=== PATIENT | male | born 1945 | race Asian ===

== ENCOUNTER 2017-09-30 09:58 | Inpatient (IN) | payer MEDICARE, MEDICAID ==
[~2017-09-30] VITALS: Ht 162.6 cm; Wt 57.0 kg
[~2017-09-30 09:58] MED LIST: ASPI-496 PO; CEFD300C37 PO; DIPH25CA61 PO; DOXY100T PO; ENAL10TA71 PO; ERGO500017 PO; HYDR-3237 PO; HYDR-3342 PO; LEVO75TA5 PO; METF850T2 PO; MULT-717 PO; OMEP-110 PO; SIMV20TA PO; TRIA15CR53 TP
[2017-09-30] MEDS ORDERED: SODIUM CHLORIDE FLUSH 10ML SYR IVF ONE (10:30)
[2017-09-30] MEDS ORDERED: MECLIZINE CHEWABLE 25 MG TAB PO ONE (10:30)
[2017-09-30] MEDS ORDERED: SODIUM CHLORIDE 0.9% 1,000ML IVBOLUS ONE (10:30)
[2017-09-30] MEDS ORDERED: MECLIZINE CHEWABLE 25 MG TAB ONE (10:44)
[2017-09-30] MEDS ORDERED: ATOR20TA9 PO (10:56)
[2017-09-30] MEDS ORDERED: LISI-170 PO (10:56)
[2017-09-30 11:11] LABS: INTERNATIONAL NORMALIZED RATIO 1.03 (0.93-1.1); PROTHROMBIN TIME 10.7 Seconds (9.6-11.5)
[2017-09-30 11:13] LABS: ALBUMIN 3.9 g/dL (3.4-5.0); ANION GAP 11 mmol/L (5-15); CHLORIDE 107 mmol/L (98-107); CREATININE 1.58 mg/dL (0.7-1.3)
[2017-09-30 11:15] LABS: BASOPHILS # (AUTO) 0.05 x10^3/uL (0-0.1); BASOPHILS % (AUTO) 1 % (0-1); EOSINOPHILS # (AUTO) 0.41 x10^3/uL (0-0.4); EOSINOPHILS % (AUTO) 5 % (1-7); LYMPHOCYTES # (AUTO) 2.02 x10^3/uL (1-3.4); LYMPHOCYTES % (AUTO) 24 % (22-44); MD NO; MEAN CORPUSCULAR HEMOGLOBIN 31.7 pg (27.5-34.5); MEAN CORPUSCULAR HGB CONC 32.9 g/dL (33.2-36.2); MEAN CORPUSCULAR VOLUME 96.3 fL (81-97); MEAN PLATELET VOLUME 8.5 fL (7.4-10.4); MONOCYTES # (AUTO) 0.59 x10^3/uL (0.2-0.8); MONOCYTES % (AUTO) 7 % (2-9); NEUTROPHILS # (AUTO) 5.41 x10^3/uL (1.8-6.8); NEUTROPHILS % (AUTO) 64 % (42-75); PLATELET COUNT 133 x10^3/uL (130-400); RED BLOOD COUNT 4.28 x10^6/uL (4.38-5.82); RED CELL DISTRIBUTION WIDTH 15.1 % (9.4-14.8)
[2017-09-30 11:17] LABS: TROPONIN I < 0.015 ng/mL (0.000-0.045)
[2017-09-30 12:00] LABS: FREE T4 (FREE THYROXINE) 1.71 ng/dL (0.76-1.46); THYROID STIMULATING HORMONE 4.96 mIU/L (0.358-3.740)
[2017-09-30] MEDS: SODIUM CHLORIDE 0.9% 1,000 ML IV SCH (13:51)
[2017-09-30] MEDS ORDERED: LABETALOL 5MG/ML, 20ML IVPush PRN (14:00)
[2017-09-30] MEDS ORDERED: BISACODYL 10 MG SUPP PR PRN (14:00)
[2017-09-30] MEDS ORDERED: ONDANSETRON 2MG/ML, 2ML IVPush PRN (14:00)
[2017-09-30] MEDS: ENOXAPARIN 30 MG/0.3 ML SQ SCH (14:00)
[2017-09-30] MEDS ORDERED: ONDANSETRON ODT 4 MG PO PRN (14:00)
[2017-09-30] MEDS ORDERED: DOCUSATE 100 MG CAPSULE PO PRN (14:00)
[2017-09-30] MEDS ORDERED: ACETAMINOPHEN 325 MG TABLET PO PRN (14:00)
[2017-09-30] MEDS ORDERED: ENALAPRILAT 1.25 MG/ML, 2ML IVPush PRN (14:00)
[2017-09-30 14:38] LABS: TROPONIN I 0.024 ng/mL (0.000-0.045)
[2017-09-30 15:18] LABS: HEMOGLOBIN A1C 7.2 % (4.2-6.3)
[2017-09-30] MEDS ORDERED: ENOXAPARIN 40 MG/0.4 ML ONE (15:40)
[2017-09-30 15:47] LABS: MICROSCOPIC INDICATED
[2017-09-30] MEDS: INSULIN ASPART 100 UNITS/ML, PEN SQ-INSULIN SCH ×2 (16:00→21:39)
[2017-09-30] MEDS: MECLIZINE 12.5 MG TABLET PO SCH ×2 (16:00→20:13)
[2017-09-30 16:22] LABS: CULTURE INDICATED? NO
[2017-09-30 18:29] VITALS: BP 108/53
[2017-09-30 20:08] LABS: TROPONIN I 0.028 ng/mL (0.000-0.045)
[2017-09-30] MEDS: ATORVASTATIN 20 MG TABLET PO SCH (20:13)
[2017-09-30] MEDS: LACTULOSE 10 GM/15 ML UDC PO SCH (20:13)
[2017-09-30 20:59] VITALS: BP 113/47
[2017-09-30 21:00] VITALS: BP_SYST 109; BP_SYST 117; BP_DIAS 53; BP_DIAS 59
[2017-09-30] MEDS ORDERED: OMEPRAZOLE 20 MG CAPSULE.DR PO ONE (21:00)
[2017-10-01] MEDS: ENOXAPARIN 30 MG/0.3 ML SQ SCH ×2 (01:27→21:07)
[2017-10-01 02:11] VITALS: BP 98/55
[2017-10-01 02:12] VITALS: BP_SYST 101; BP_SYST 111; BP_DIAS 40; BP_DIAS 52
[2017-10-01 05:12] LABS: ALBUMIN 2.9 g/dL (3.4-5.0); CALCIUM 8.3 mg/dL (8.5-10.1); CHLORIDE 114 mmol/L (98-107)
[2017-10-01 05:17] LABS: ALANINE AMINOTRANSFERASE 55 U/L (12-78); ALKALINE PHOSPHATASE 66 U/L (45-117); ANION GAP 6 mmol/L (5-15); BILIRUBIN,TOTAL 0.4 mg/dL (0.2-1.0); CREATININE 1.34 mg/dL (0.7-1.3)
[2017-10-01 05:23] LABS: BASOPHILS # (AUTO) 0.02 x10^3/uL (0-0.1); BASOPHILS % (AUTO) 0 % (0-1); EOSINOPHILS # (AUTO) 0.27 x10^3/uL (0-0.4); EOSINOPHILS % (AUTO) 4 % (1-7); LYMPHOCYTES # (AUTO) 0.98 x10^3/uL (1-3.4); LYMPHOCYTES % (AUTO) 13 % (22-44); MD NO; MEAN CORPUSCULAR HEMOGLOBIN 31.7 pg (27.5-34.5); MEAN CORPUSCULAR HGB CONC 33.2 g/dL (33.2-36.2); MEAN CORPUSCULAR VOLUME 95.4 fL (81-97); MEAN PLATELET VOLUME 8.3 fL (7.4-10.4); MONOCYTES # (AUTO) 0.59 x10^3/uL (0.2-0.8); MONOCYTES % (AUTO) 8 % (2-9); NEUTROPHILS # (AUTO) 5.62 x10^3/uL (1.8-6.8); NEUTROPHILS % (AUTO) 75 % (42-75); PLATELET COUNT 115 x10^3/uL (130-400); RED BLOOD COUNT 3.56 x10^6/uL (4.38-5.82); RED CELL DISTRIBUTION WIDTH 14.3 % (9.4-14.8)
[2017-10-01 05:26] VITALS: BP 101/49
[2017-10-01] MEDS: SODIUM CHLORIDE 0.9% 1,000 ML IV SCH ×2 (06:06→21:08)
[2017-10-01] MEDS: INSULIN ASPART 100 UNITS/ML, PEN SQ-INSULIN SCH ×4 (07:00→21:00)
[2017-10-01] MEDS: LACTULOSE 10 GM/15 ML UDC PO SCH (08:12)
[2017-10-01] MEDS: ASPIRIN 81 MG TABLET EC PO SCH (10:03)
[2017-10-01] MEDS: OMEPRAZOLE 20 MG CAPSULE.DR PO SCH (10:03)
[2017-10-01] MEDS: MECLIZINE 12.5 MG TABLET PO SCH ×3 (10:03→21:07)
[2017-10-01] MEDS: LEVOTHYROXINE 75 MCG TABLET PO SCH (10:04)
[2017-10-01] MEDS ORDERED: ERGOCALCIFEROL 50,000 UNIT CAPSULE PO SCH (11:00)
[2017-10-01 13:45] VITALS: BP 129/55
[2017-10-01] MEDS: TRIAMCINOLONE CRM 0.5%, 15GM TP SCH ×2 (16:00→21:07)
[2017-10-01 20:49] VITALS: BP_SYST 140; BP_SYST 144; BP_SYST 156; BP_DIAS 63; BP_DIAS 65; BP_DIAS 71
[2017-10-01] MEDS: ATORVASTATIN 20 MG TABLET PO SCH (21:07)
[2017-10-02] VITALS (7 sets, daily range): BP systolic 128–166; BP diastolic 57–75
[2017-10-02] MEDS: SODIUM CHLORIDE 0.9% 1,000 ML IV SCH ×2 (06:02→16:51)
[2017-10-02] MEDS: INSULIN ASPART 100 UNITS/ML, PEN SQ-INSULIN SCH ×4 (07:00→21:34)
[2017-10-02] MEDS: ASPIRIN 81 MG TABLET EC PO SCH (09:38)
[2017-10-02] MEDS: MECLIZINE 12.5 MG TABLET PO SCH ×3 (09:38→21:33)
[2017-10-02] MEDS: TRIAMCINOLONE CRM 0.5%, 15GM TP SCH ×3 (09:39→21:34)
[2017-10-02] MEDS: LEVOTHYROXINE 75 MCG TABLET PO SCH (09:39)
[2017-10-02] MEDS: ENOXAPARIN 30 MG/0.3 ML SQ SCH ×2 (09:39→21:00)
[2017-10-02] MEDS: LISINOPRIL 20 MG TABLET PO SCH (09:39)
[2017-10-02] MEDS: OMEPRAZOLE 20 MG CAPSULE.DR PO SCH (09:39)
[2017-10-02] MEDS: ATORVASTATIN 20 MG TABLET PO SCH (21:33)
[2017-10-03 02:58] VITALS: BP 146/62
[2017-10-03] MEDS: SODIUM CHLORIDE 0.9% 1,000 ML IV SCH ×4 (04:52→14:06)
[2017-10-03 05:16] LABS: BASOPHILS # (AUTO) 0.06 x10^3/uL (0-0.1); BASOPHILS % (AUTO) 1 % (0-1); EOSINOPHILS # (AUTO) 0.57 x10^3/uL (0-0.4); EOSINOPHILS % (AUTO) 9 % (1-7); LYMPHOCYTES # (AUTO) 1.03 x10^3/uL (1-3.4); LYMPHOCYTES % (AUTO) 16 % (22-44); MD NO; MEAN CORPUSCULAR HEMOGLOBIN 31.6 pg (27.5-34.5); MEAN CORPUSCULAR HGB CONC 33.1 g/dL (33.2-36.2); MEAN CORPUSCULAR VOLUME 95.5 fL (81-97); MEAN PLATELET VOLUME 8.7 fL (7.4-10.4); MONOCYTES # (AUTO) 0.64 x10^3/uL (0.2-0.8); MONOCYTES % (AUTO) 10 % (2-9); NEUTROPHILS # (AUTO) 4.01 x10^3/uL (1.8-6.8); NEUTROPHILS % (AUTO) 63 % (42-75); PLATELET COUNT 115 x10^3/uL (130-400); RED BLOOD COUNT 3.88 x10^6/uL (4.38-5.82); RED CELL DISTRIBUTION WIDTH 14.3 % (9.4-14.8)
[2017-10-03 05:18] LABS: INTERNATIONAL NORMALIZED RATIO 1.06 (0.93-1.1)
[2017-10-03 05:23] LABS: CHLORIDE 111 mmol/L (98-107)
[2017-10-03 05:28] LABS: ANION GAP 5 mmol/L (5-15); CALCIUM 7.7 mg/dL (8.5-10.1); CREATININE 1.15 mg/dL (0.7-1.3)
[2017-10-03] MEDS ORDERED: CEFAZOLIN PMX 1GM/50ML 50 ML IVPB ONE (07:30)
[2017-10-03 07:43] VITALS: BP_SYST 157; BP_SYST 158; BP_DIAS 64; BP_DIAS 66
[2017-10-03] MEDS: MECLIZINE 12.5 MG TABLET PO SCH ×3 (08:08→20:46)
[2017-10-03] MEDS: ASPIRIN 81 MG TABLET EC PO SCH (08:09)
[2017-10-03] MEDS: OMEPRAZOLE 20 MG CAPSULE.DR PO SCH (08:12)
[2017-10-03] MEDS: TRIAMCINOLONE CRM 0.5%, 15GM TP SCH ×3 (08:12→20:44)
[2017-10-03] MEDS: LISINOPRIL 20 MG TABLET PO SCH (08:12)
[2017-10-03] MEDS: LEVOTHYROXINE 75 MCG TABLET PO SCH (08:12)
[2017-10-03] MEDS: INSULIN ASPART 100 UNITS/ML, PEN SQ-INSULIN SCH ×3 (11:00→20:38)
[2017-10-03 14:10] VITALS: BP 167/69
[2017-10-03 19:04] VITALS: BP 131/81
[2017-10-03] MEDS ORDERED: LOPERAMIDE 2 MG CAPSULE PO PRN (20:00)
[2017-10-03] MEDS: ATORVASTATIN 20 MG TABLET PO SCH (20:44)
[2017-10-04 02:44] VITALS: BP 142/70
[2017-10-04] MEDS: SODIUM CHLORIDE 0.9% 1,000 ML IV SCH ×2 (06:05→14:00)
[2017-10-04] MEDS: INSULIN ASPART 100 UNITS/ML, PEN SQ-INSULIN SCH ×3 (07:00→21:00)
[2017-10-04 07:03] VITALS: BP 154/70
[2017-10-04] MEDS ORDERED: CEFAZOLIN PMX 1GM/50ML 50 ML IV ONE ×2 (08:30→09:00)
[2017-10-04] MEDS: LISINOPRIL 20 MG TABLET PO SCH (09:00)
[2017-10-04] MEDS: TRIAMCINOLONE CRM 0.5%, 15GM TP SCH ×3 (09:00→21:46)
[2017-10-04] MEDS: OMEPRAZOLE 20 MG CAPSULE.DR PO SCH (09:00)
[2017-10-04] MEDS: MECLIZINE 12.5 MG TABLET PO SCH ×3 (09:00→21:46)
[2017-10-04] MEDS: LEVOTHYROXINE 75 MCG TABLET PO SCH (09:00)
[2017-10-04] MEDS ORDERED: MIDAZOLAM 1 MG/ML, 2ML ONE (09:48)
[2017-10-04] MEDS ORDERED: LIDOCAINE 2%, 20ML ONE (09:49)
[2017-10-04] MEDS ORDERED: CEFAZOLIN 1,000 MG ONE (09:49)
[2017-10-04] MEDS ORDERED: CEFAZOLIN PMX 1GM/50ML 50 ML ONE (09:49)
[2017-10-04] MEDS ORDERED: FENTANYL PF 100 MCG/2ML ONE (09:49)
[2017-10-04 14:00] VITALS: BP 144/79
[2017-10-04 19:52] VITALS: BP 155/75
[2017-10-04] MEDS: SODIUM CHLORIDE FLUSH 10ML SYR IVF SCH (21:00)
[2017-10-04] MEDS: CEFAZOLIN PMX 1GM/50ML 50 ML IVPB SCH (21:33)
[2017-10-04] MEDS: ATORVASTATIN 20 MG TABLET PO SCH (21:46)
[2017-10-05 00:06] VITALS: BP 163/78
[2017-10-05] MEDS: SODIUM CHLORIDE 0.9% 1,000 ML IV SCH ×3 (00:36→12:51)
[2017-10-05] MEDS: CEFAZOLIN PMX 1GM/50ML 50 ML IVPB SCH (05:37)
[2017-10-05 06:30] LABS: ANION GAP 7 mmol/L (5-15); CALCIUM 7.6 mg/dL (8.5-10.1); CHLORIDE 108 mmol/L (98-107); CREATININE 1.22 mg/dL (0.7-1.3)
[2017-10-05 06:54] LABS: BASOPHILS # (AUTO) 0.04 x10^3/uL (0-0.1); BASOPHILS % (AUTO) 1 % (0-1); EOSINOPHILS # (AUTO) 0.42 x10^3/uL (0-0.4); EOSINOPHILS % (AUTO) 6 % (1-7); LYMPHOCYTES % (AUTO) 13 % (22-44); MD SCAN; MEAN CORPUSCULAR HEMOGLOBIN 31.4 pg (27.5-34.5); MEAN CORPUSCULAR HGB CONC 32.7 g/dL (33.2-36.2); MEAN PLATELET VOLUME 8.7 fL (7.4-10.4); MONOCYTES # (AUTO) 0.57 x10^3/uL (0.2-0.8); MONOCYTES % (AUTO) 8 % (2-9); NEUTROPHILS # (AUTO) 5.26 x10^3/uL (1.8-6.8); NEUTROPHILS % (AUTO) 73 % (42-75); PLATELET COUNT 95 x10^3/uL (130-400); RED BLOOD COUNT 4.02 x10^6/uL (4.38-5.82); RED CELL DISTRIBUTION WIDTH 14.4 % (9.4-14.8)
[2017-10-05] MEDS: INSULIN ASPART 100 UNITS/ML, PEN SQ-INSULIN SCH ×2 (07:00→11:00)
[2017-10-05 07:43] VITALS: BP 153/74
[2017-10-05] MEDS ORDERED: CARVEDILOL 3.125 MG TABLET PO SCH (09:00)
[2017-10-05] MEDS: MECLIZINE 12.5 MG TABLET PO SCH (09:26)
[2017-10-05] MEDS: LISINOPRIL 20 MG TABLET PO SCH (09:27)
[2017-10-05] MEDS: SODIUM CHLORIDE FLUSH 10ML SYR IVF SCH (09:27)
[2017-10-05] MEDS: LEVOTHYROXINE 75 MCG TABLET PO SCH (09:27)
[2017-10-05] MEDS: OMEPRAZOLE 20 MG CAPSULE.DR PO SCH (09:27)
[2017-10-05] MEDS: TRIAMCINOLONE CRM 0.5%, 15GM TP SCH (09:27)
[2017-10-05] MEDS ORDERED: CARV3.1212 PO (12:48)
[2017-10-05 14:16] VITALS: BP 150/73
== END 2017-10-05 16:00 | disposition home or self-care (01) | DRG 242 ==
LOC: ED 12:50 → EDIP 13:51 → 4EST 18:08 → 5SO 10-04 11:24 → DCLOUNGE 10-05 15:21
PROVIDERS: ADMIT Hospitalist; ATTEND Hospitalist
PROC: B5171ZZ Fluoroscopy of Left Subclavian Vein using Low Osmolar Contrast (ICD-10-PCS; principal; 2017-10-04)
PROC: 0JH606Z Insertion of Pacemaker, Dual Chamber into Chest Subcutaneous Tissue and Fascia, Open Approach (ICD-10-PCS; 2017-10-04)
PROC: 02H63JZ Insertion of Pacemaker Lead into Right Atrium, Percutaneous Approach (ICD-10-PCS; 2017-10-04)
PROC: 02HK3JZ Insertion of Pacemaker Lead into Right Ventricle, Percutaneous Approach (ICD-10-PCS; 2017-10-04)
DX: I49.5 Sick sinus syndrome (principal); N17.0 Acute kidney failure with tubular necrosis; E11.22 Type 2 diabetes mellitus with diabetic chronic kidney disease; E11.51 Type 2 diabetes mellitus with diabetic peripheral angiopathy without gangrene; D64.9 Anemia, unspecified; E03.9 Hypothyroidism, unspecified; E11.65 Type 2 diabetes mellitus with hyperglycemia; E78.00 Pure hypercholesterolemia, unspecified; I13.10 Hypertensive heart and chronic kidney disease without heart failure, with stage 1 through stage 4 chronic kidney disease, or unspecified chronic kidney disease; I25.10 Atherosclerotic heart disease of native coronary artery without angina pectoris; I27.20 Pulmonary hypertension, unspecified; I65.29 Occlusion and stenosis of unspecified carotid artery; K21.9 Gastro-esophageal reflux disease without esophagitis; N18.9 Chronic kidney disease, unspecified; Z85.01 Personal history of malignant neoplasm of esophagus; Z87.891 Personal history of nicotine dependence; Z92.21 Personal history of antineoplastic chemotherapy; Z92.3 Personal history of irradiation; Z95.1 Presence of aortocoronary bypass graft; Z79.899 Other long term (current) drug therapy
CPT/HCPCS: 33208; 36005; 36415; 70450; 71045; 80048; 80053; 81001; 82040; 82962; 83036; 83735; 84100; 84439; 84443; 84484; 85025; 85610; 85730; 93005; 93306; 93880; 96360; 99156; 99157; C1779; C1785; C1892; J0690; J1650; J1815; J2250; J3010; J3490; J7030; Q9967

== ENCOUNTER 2018-11-30 15:40 | Emergency (ER) | payer MEDICARE, MEDICAID ==
[~2018-11-30] VITALS: Ht 162.6 cm; Wt 51.2 kg
[~2018-11-30 15:40] MED LIST changes: +ATOR20TA37 PO; +CARV3.1212 PO; +LISI-170 PO; +METF850T10 PO; -METF850T2 PO
[2018-11-30] MEDS ORDERED: INDOMETHACIN 50 MG CAPSULE PO ONE (16:30)
[2018-11-30] MEDS ORDERED: COLCHICINE 0.6 MG TABLET PO ONE (16:30)
--- NOTE | 2018-11-30 17:19 | NUR ---
PT TO ROOM FROM LOBBY, GAIT STEADY
[2018-11-30 18:21] LABS: BASOPHILS % (AUTO) 0 % (0-1); EOSINOPHILS # (AUTO) 0.27 x10^3/uL (0-0.4); EOSINOPHILS % (AUTO) 3 % (1-7); LYMPHOCYTES # (AUTO) 0.92 x10^3/uL (1-3.4); LYMPHOCYTES % (AUTO) 9 % (22-44); MD NO; MEAN CORPUSCULAR HGB CONC 32.2 g/dL (33.2-36.2); MEAN CORPUSCULAR VOLUME 99.3 fL (81-97); MEAN PLATELET VOLUME 8.4 fL (7.4-10.4); MONOCYTES # (AUTO) 1.03 x10^3/uL (0.2-0.8); MONOCYTES % (AUTO) 11 % (2-9); NEUTROPHILS # (AUTO) 7.52 x10^3/uL (1.8-6.8); NEUTROPHILS % (AUTO) 77 % (42-75); PLATELET COUNT 127 x10^3/uL (130-400); RED CELL DISTRIBUTION WIDTH 14.3 % (9.4-14.8)
--- NOTE | 2018-11-30 18:29 | NUR ---
Junior harrell in [facility] - 11/30/18 at 1829 by [place] pt to xray
--- NOTE | 2018-11-30 18:29 | NUR ---
note undone, charted on wrong pt.
[2018-11-30] MEDS ORDERED: INDOMETHACIN 50 MG CAPSULE ONE (18:44)
[2018-11-30] MEDS ORDERED: COLCHICINE 0.6 MG TABLET ONE ×2 (18:44→18:55)
[2018-11-30 18:52] VITALS: BP 152/74
--- NOTE | 2018-11-30 19:12 | NUR ---
pt given dc instructions and script. pt educated regarding rx for indomethacin. pt a&o, resps even and unlabored. pt amb to dc desk with steady gait, nadn at dc.
== END 2018-11-30 19:14 | disposition home or self-care (01) ==
LOC: ED 18:26
DX: M1A.0710 Idiopathic chronic gout, right ankle and foot, without tophus (tophi) (principal); I10 Essential (primary) hypertension; E11.9 Type 2 diabetes mellitus without complications; E78.00 Pure hypercholesterolemia, unspecified; K21.9 Gastro-esophageal reflux disease without esophagitis; Z87.891 Personal history of nicotine dependence
CPT/HCPCS: 36415; 82962; 84550; 85025; 99284

== ENCOUNTER → 2019-03-12 | Outpatient (CLI) | payer MEDICARE, MEDICAID | END | disposition home or self-care (01) | LOC: CFH 10:29 | PROVIDERS: ATTEND Internal Medicine Cardiovascular Disease | DX: I08.3 Combined rheumatic disorders of mitral, aortic and tricuspid valves (principal); I10 Essential (primary) hypertension; E78.5 Hyperlipidemia, unspecified; E11.9 Type 2 diabetes mellitus without complications | CPT/HCPCS: 93306 ==

== ENCOUNTER 2020-04-17 13:33 | Outpatient (CLI) | payer MEDICARE, MEDICAID | END 2020-04-17 23:59 | disposition home or self-care (01) | LOC: CFH 13:33 | PROVIDERS: ATTEND Internal Medicine Cardiovascular Disease | DX: I08.8 Other rheumatic multiple valve diseases (principal); I10 Essential (primary) hypertension; E78.5 Hyperlipidemia, unspecified | CPT/HCPCS: 93306 ==

== ENCOUNTER 2020-11-08 19:51 | Emergency (ER) | payer MEDICARE, MEDICAID ==
[~2020-11-08] VITALS: Ht 160 cm; Wt 51.7 kg
[2020-11-08 20:45] LABS: BASOPHILS % (AUTO) 1 % (0-1); EOSINOPHILS % (AUTO) 8 % (1-7); LYMPHOCYTES % (AUTO) 26 % (22-44); MEAN CORPUSCULAR HEMOGLOBIN 32.2 pg (27.5-34.5); MEAN CORPUSCULAR HGB CONC 33.1 g/dL (33.2-36.2); MONOCYTES % (AUTO) 13 % (2-9); NEUTROPHILS % (AUTO) 52 % (42-75); PLATELET COUNT 131 x10^3/uL (130-400); RED CELL DISTRIBUTION WIDTH 14.5 % (9.4-14.8)
[2020-11-08 20:48] LABS: MD NO
[2020-11-08 20:48] LABS: MICROSCOPIC AUTO
[2020-11-08 20:55] LABS: ALBUMIN 3.6 g/dL (3.4-5.0); ANION GAP 7 mmol/L (5-15); CALCIUM 8.4 mg/dL (8.5-10.1); CHLORIDE 109 mmol/L (98-107); CREATININE 1.57 mg/dL (0.7-1.3)
[2020-11-08 20:57] LABS: INTERNATIONAL NORMALIZED RATIO 1.02 (0.93-1.1); PROTHROMBIN TIME 10.9 Seconds (9.6-11.5)
--- NOTE | 2020-11-08 21:02 | NUR ---
PT SITTING UPRIGHT ON GURNEY, PROVIDED WARM BLANKETS. PT DENIES ANY ADDITIONAL NEEDS AT THIS TIME. CALL LIGHT AND PERSONAL BELONGINGS WITHIN REACH. FAMILY AT BEDSIDE.
--- NOTE | 2020-11-08 22:09 | NUR ---
PT SITTING UPRIGHT ON GUHOLLY, KAILA, VSS. BEAR PAW WARMER IN PLACE PER PT REQUEST. PT DENIES ANY NEEDS AT THIS TIME. CALL LIGHT AND PERSONAL BELONGINGS WITHIN REACH
--- NOTE | 2020-11-08 22:50 | NUR ---
MT: Urology paged
[2020-11-09] VITALS: BP 127/65
--- NOTE | 2020-11-09 00:01 | NUR ---
PT SITTING UPRIGHT ON GURNEY SLEEPING, NADN, VSS. BEAR PAW WARMER IN PLACE PER PT REQUEST. PT DENIES ANY NEEDS AT THIS TIME. CALL LIGHT AND PERSONAL BELONGINGS WITHIN REACH
--- NOTE | 2020-11-09 00:34 | NUR ---
MT: urology paged
--- NOTE | 2020-11-09 00:57 | NUR ---
Covering primary for break. Pt resting, RR equal and unlabored.
--- NOTE | 2020-11-09 01:24 | NUR ---
dc home with instruct and f/u with urology, pt daughter and pt verbalize understanding of instruct and f/u. to return to ER if worse, concerns, fever, dizzy lightheadedness.
== END 2020-11-09 01:32 | disposition home or self-care (01) ==
LOC: ED 20:28
DX: R31.0 Gross hematuria (principal); K21.9 Gastro-esophageal reflux disease without esophagitis; I10 Essential (primary) hypertension; M10.9 Gout, unspecified; E11.9 Type 2 diabetes mellitus without complications; E78.00 Pure hypercholesterolemia, unspecified
CPT/HCPCS: 36415; 74176; 80048; 81001; 82040; 85025; 85610; 85730; 87086; 99284

== ENCOUNTER → 2021-02-12 | Outpatient (CLI) | payer MEDICARE, MEDICAID | END | disposition home or self-care (01) | LOC: RAD 09:44 | PROVIDERS: ATTEND Urology | DX: N21.0 Calculus in bladder (principal); N20.0 Calculus of kidney; R31.0 Gross hematuria; N32.89 Other specified disorders of bladder; N13.30 Unspecified hydronephrosis | CPT/HCPCS: 76770 ==

== ENCOUNTER 2021-04-03 11:55 | Outpatient (CLI) | payer MEDICARE, MEDICAID ==
[~2021-04-03 11:55] MED LIST changes: +REGADENOSON 0.4 MG/5 ML SYRINGE ONE
== END 2021-04-03 23:59 | disposition home or self-care (01) ==
LOC: CFH 11:55
PROVIDERS: ATTEND Registered Nurse
DX: I35.1 Nonrheumatic aortic (valve) insufficiency (principal); I77.810 Thoracic aortic ectasia
CPT/HCPCS: 78452; 93017; A9502; J2785

== ENCOUNTER 2021-05-28 14:56 | Outpatient (CLI) | payer MEDICARE, MEDICAID ==
[~2021-05-28 14:56] MED LIST changes: -REGADENOSON 0.4 MG/5 ML SYRINGE ONE
== END 2021-05-28 23:59 | disposition home or self-care (01) ==
LOC: CFH 14:56
PROVIDERS: ATTEND Registered Nurse
DX: I08.8 Other rheumatic multiple valve diseases (principal); I77.810 Thoracic aortic ectasia
CPT/HCPCS: 93306; 93356